=== PATIENT | male | born 2005 | race Asian ===

== ENCOUNTER 2023-01-02 23:15 | Emergency (ER) | payer OTHER, SELFPAY ==
[2023-01-02 23:17] VITALS: BP 112/48; PULSE 74; RESP 15; TEMP 37.3; O2SAT 99; BMI 21.5
--- NOTE | 2023-01-03 00:03 | RAD_ITS ---
INDICATION: Trauma, leg injury EXAMINATION/TECHNIQUE: X-RAY - RIGHT XR Tibia/Fibula 2 Views 2 VIEWS COMPARISON: None. FINDINGS: SOFT TISSUES: No soft tissue swelling or gas. No radiopaque foreign body. BONES/JOINTS: Comminuted and mildly displaced fracture of the distal tibia at the junction of the middle and distal thirds, overall alignment near anatomic. Comminuted and displaced fracture of the proximal fibula, overall alignment near anatomic. Joint spaces anatomically aligned. RAD/Tibia & Fibula 2 Views IMPRESSION: Comminuted and displaced fractures of the proximal fibula and distal tibia. Electronically Signed: Theo Riggs MD at 0:39 EST ,
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
[2023-01-03] MEDS: Ibuprofen 600 MG Tablet PO (00:11)
== END 2023-01-03 02:59 | disposition home or self-care (01) ==
PROVIDERS: Emergency Provider Emergency Medicine; Visit Provider Emergency Medicine
DX: S82.451A Displaced comminuted fracture of shaft of right fibula, initial encounter for closed fracture (principal); S82.251A Displaced comminuted fracture of shaft of right tibia, initial encounter for closed fracture; W00.0XXA Fall on same level due to ice and snow, initial encounter; Y93.21 Activity, ice skating
CPT/HCPCS: 73590; 99285